=== PATIENT | male | born 1980 | race Caucasian/White ===

== ENCOUNTER 2017-08-25 15:51 | Inpatient (IN) | payer BC, OTHER ==
[~2017-08-25] VITALS: Ht 180.3 cm; Wt 106.6 kg
[2017-08-25] MEDS ORDERED: DICYCLOMINE HCL 20 MG TABLET PO PRN (18:15)
[2017-08-25] MEDS ORDERED: LORAZEPAM 1 MG TABLET PO PRN ×2 (18:15)
[2017-08-25] MEDS ORDERED: MIRALAX 17 GM POWD.PACK PO PRN (18:15)
[2017-08-25] MEDS ORDERED: ACETAMINOPHEN 325 MG TABLET PO PRN (18:15)
[2017-08-25] MEDS ORDERED: LORAZEPAM 2 MG/1 ML VIAL IM PRN (18:15)
[2017-08-25] MEDS ORDERED: LOPERAMIDE HCL 2 MG CAPSULE PO PRN ×2 (18:15)
[2017-08-25] MEDS ORDERED: ONDANSETRON ODT 4 MG TAB.RAPDIS SL PRN (18:15)
[2017-08-25] MEDS ORDERED: MAGNESIUM HYDROXIDE 30 ML LIQUID UDC PO PRN (18:15)
[2017-08-25] MEDS ORDERED: ONDANSETRON 4 MG/2 ML VIAL IM PRN (18:15)
[2017-08-25] MEDS ORDERED: diphenhydrAMINE 50 MG CAPSULE PO PRN (18:15)
[2017-08-25] MEDS ORDERED: MAG HYDROX/AL HYDROX/SIMETH 30 ML LIQUID UDC PO PRN (18:15)
[2017-08-25] MEDS ORDERED: THIAMINE HCL 200 MG/2 ML VIAL IM ONE (19:00)
[2017-08-25 20:00] VITALS: BP 130/68
[2017-08-25 20:24] LABS: *AMPHETAMINE, URINE POSITIVE (NEGATIVE); *BARBITURATE, URINE NEGATIVE (NEGATIVE); *CANNABINOID, URINE NEGATIVE (NEGATIVE); *COCCAINE, URINE NEGATIVE (NEGATIVE); *OPIATE, URINE NEGATIVE (NEGATIVE); *PHENCYCLIDINE SCREEN,URINE NEGATIVE (NEGATIVE)
[2017-08-25] MEDS: GABAPENTIN 300 MG CAPSULE PO SCH (20:52)
[2017-08-25] MEDS ORDERED: LORAZEPAM 1 MG TABLET PO SCH (21:00)
[2017-08-25 22:59] LABS: ETHANOL < 3 MG/DL (0-0)
[2017-08-25] MEDS ORDERED: ARIP10TA9 PO (23:03)
[2017-08-25] MEDS ORDERED: BUPR200T2 PO (23:03)
[2017-08-25] MEDS ORDERED: TRAZ-147 PO (23:03)
[2017-08-25] MEDS ORDERED: DULO30CA2 PO (23:03)
[2017-08-25 23:45] LABS: ALANINE AMINOTRANSFERASE 56 U/L (16-63); ALKALINE PHOSPHATASE 54 U/L (50-136); AMYLASE 45 U/L (25-115); ASPARTATE AMINOTRANSFERASE 29 U/L (15-37); BILIRUBIN,TOTAL 0.3 mg/dL (0.2-1.0); CARBON DIOXIDE 30 mmol/L (21-32); CHLORIDE 102 mmol/L (98-107); CREATININE 1.3 mg/dL (0.6-1.3); GLUCOSE 105 mg/dL (74-106); POTASSIUM 4.1 mmol/L (3.5-5.1); TOTAL PROTEIN, SERUM 6.7 g/dL (6.4-8.2); UREA NITROGEN, BLOOD 19 mg/dL (7-18)
[2017-08-25 23:46] LABS: THYROID STIMULATING HORMONE 2.281 mIU/mL (0.358-3.740)
[2017-08-26] VITALS: BP 125/72
[2017-08-26 00:06] LABS: BASOPHILS # (AUTO) 0.1 K/uL (0.0-8.0); BASOPHILS % (AUTO) 1.3 % (0.0-2.0); EOSINOPHILS # (AUTO) 0.9 K/uL (0.0-0.7); EOSINOPHILS % (AUTO) 9.2 % (0.0-7.0); HEMATOCRIT 44.3 % (36.7-47.1); HEMOGLOBIN 15.4 g/dL (12.5-16.3); LYMPHOCYTES # (AUTO) 2.1 K/uL (20.0-40.0); LYMPHOCYTES % (AUTO) 22.6 % (20.5-51.5); MEAN CORPUSCULAR HEMOGLOBIN 34.5 uug (23.8-33.4); MEAN CORPUSCULAR HGB CONC 35 g/dL (32.5-36.3); MEAN CORPUSCULAR VOLUME 99.4 fL (73.0-96.2); MONOCYTES # (AUTO) 0.7 K/uL (2.0-10.0); MONOCYTES % (AUTO) 7.7 % (0.0-11.0); NEUTROPHILS # (AUTO) 5.5 K/uL (1.8-8.9); NEUTROPHILS % (AUTO) 59.2 % (38.5-71.5); PLATELET COUNT (AUTO) 143 K/uL (152-348); RED BLOOD CELL COUNT(AUTO) 4.46 MIL/uL (4.06-5.63); WHITE BLOOD COUNT (AUTO) 9.4 K/uL (3.6-10.2)
[2017-08-26 04:00] VITALS: BP 132/70
[2017-08-26 08:00] VITALS: BP 118/76
[2017-08-26] MEDS ORDERED: TUBERCULIN,PURIF.PROT.DERIV. 5 TU/0.1 ML TEST ID ONE (09:00)
[2017-08-26] MEDS: THIAMINE HCL 100 MG TABLET PO SCH (09:10)
[2017-08-26] MEDS: LORAZEPAM 1 MG TABLET PO SCH ×3 (09:10→20:17)
[2017-08-26] MEDS: FOLIC ACID 1 MG TABLET PO SCH (09:10)
[2017-08-26] MEDS: GABAPENTIN 300 MG CAPSULE PO SCH ×2 (09:10→20:18)
[2017-08-26] MEDS: MULTIVITAMINS,THERAPEUTIC TABLET PO SCH (09:10)
[2017-08-26] MEDS ORDERED: TRAZODONE 100 MG TABLET PO PRN (09:45)
[2017-08-26] MEDS ORDERED: PNEUMOCOCCAL 23-VAL P-SAC VAC 0.5 ML VIAL IM ONE (10:00)
[2017-08-26] MEDS: buPROPion XL 150 MG TAB.SR.24H PO SCH (10:24)
[2017-08-26] MEDS: ARIPIPRAZOLE 10 MG TABLET PO SCH (10:24)
[2017-08-26] MEDS ORDERED: INFLUENZA VACCINE 2017-2018 0.5 ML DISP.SYRIN IM ONE ×2 (10:49→15:00)
[2017-08-26 12:00] VITALS: BP 114/61
[2017-08-26 16:00] VITALS: BP 111/60
[2017-08-26 20:00] VITALS: BP 139/71
[2017-08-26] MEDS: IBUPROFEN 400 MG TABLET PO PRN (20:17)
[2017-08-27 08:00] VITALS: BP 109/67
[2017-08-27 08:06] LABS: HEPATITIS B SURFACE AG Negative (Negative)
[2017-08-27] MEDS: FOLIC ACID 1 MG TABLET PO SCH (08:18)
[2017-08-27] MEDS: MULTIVITAMINS,THERAPEUTIC TABLET PO SCH (08:18)
[2017-08-27] MEDS: buPROPion XL 150 MG TAB.SR.24H PO SCH (08:18)
[2017-08-27] MEDS: GABAPENTIN 300 MG CAPSULE PO SCH ×3 (08:18→20:15)
[2017-08-27] MEDS: LORAZEPAM 1 MG TABLET PO SCH ×3 (08:18→20:15)
[2017-08-27] MEDS: THIAMINE HCL 100 MG TABLET PO SCH (08:18)
[2017-08-27] MEDS: ARIPIPRAZOLE 10 MG TABLET PO SCH (08:18)
[2017-08-27] MEDS ORDERED: HYDROXYZINE PAMOATE 25 MG CAPSULE PO PRN ×2 (09:00→19:15)
[2017-08-27] MEDS: IBUPROFEN 400 MG TABLET PO PRN (11:55)
[2017-08-27 12:00] VITALS: BP 122/74
[2017-08-27] MEDS ORDERED: LORAZEPAM 1 MG TABLET PO ONE (12:00)
[2017-08-27 16:00] VITALS: BP 120/65
[2017-08-27] MEDS ORDERED: KETOROLAC TROMETHAMINE 30 MG INJ IM PRN (16:30)
[2017-08-27] MEDS ORDERED: BACLOFEN 20 MG TABLET PO PRN (16:30)
[2017-08-27] MEDS ORDERED: IBUPROFEN 600 MG TABLET PO PRN (16:30)
[2017-08-27 20:00] VITALS: BP 114/64
[2017-08-27] MEDS: QUETIAPINE FUMARATE 100 MG TABLET PO PRN (22:38)
[2017-08-28] VITALS: BP_SYST 103; BP_SYST 111; BP_DIAS 58; BP_DIAS 63
[2017-08-28 04:00] VITALS: BP 126/72
[2017-08-28 08:00] VITALS: BP 137/77
[2017-08-28] MEDS: GABAPENTIN 300 MG CAPSULE PO SCH ×2 (08:30→14:16)
[2017-08-28] MEDS: MULTIVITAMINS,THERAPEUTIC TABLET PO SCH (08:30)
[2017-08-28] MEDS: ARIPIPRAZOLE 10 MG TABLET PO SCH (08:31)
[2017-08-28] MEDS: THIAMINE HCL 100 MG TABLET PO SCH (08:31)
[2017-08-28] MEDS: LORAZEPAM 1 MG TABLET PO SCH ×3 (08:31→20:49)
[2017-08-28] MEDS: buPROPion XL 150 MG TAB.SR.24H PO SCH (08:31)
[2017-08-28] MEDS: FOLIC ACID 1 MG TABLET PO SCH (08:31)
[2017-08-28] MEDS ORDERED: LORAZEPAM 1 MG TABLET PO SCH ×2 (09:00)
[2017-08-28 12:00] VITALS: BP 115/63
[2017-08-28] MEDS ORDERED: CLONIDINE HCL 0.1 MG TABLET PO ONE (15:00)
[2017-08-28 16:00] VITALS: BP 136/77
[2017-08-28 20:00] VITALS: BP 120/76
[2017-08-28] MEDS: CLONIDINE HCL 0.1 MG TABLET PO SCH (20:49)
[2017-08-28] MEDS: QUETIAPINE FUMARATE 100 MG TABLET PO PRN (20:52)
[2017-08-28] MEDS ORDERED: GABAPENTIN 300 MG CAPSULE PO SCH (21:00)
[2017-08-29 08:00] VITALS: BP 95/65
[2017-08-29] MEDS ORDERED: LORAZEPAM 1 MG TABLET PO SCH (09:00)
[2017-08-29] MEDS: ARIPIPRAZOLE 10 MG TABLET PO SCH (09:17)
[2017-08-29] MEDS: GABAPENTIN 300 MG CAPSULE PO SCH ×3 (09:17→20:10)
[2017-08-29] MEDS: CLONIDINE HCL 0.1 MG TABLET PO SCH ×2 (09:17→20:11)
[2017-08-29] MEDS: MULTIVITAMINS,THERAPEUTIC TABLET PO SCH (09:17)
[2017-08-29] MEDS: THIAMINE HCL 100 MG TABLET PO SCH (09:17)
[2017-08-29] MEDS: FOLIC ACID 1 MG TABLET PO SCH (09:17)
[2017-08-29] MEDS: buPROPion XL 150 MG TAB.SR.24H PO SCH (09:17)
[2017-08-29 12:00] VITALS: BP 106/74
[2017-08-29 16:00] VITALS: BP 106/77
[2017-08-29] MEDS ORDERED: GABA-534 PO (19:50)
[2017-08-29] MEDS ORDERED: BACL20TA PO (19:50)
[2017-08-29] MEDS ORDERED: HYDR-3895 PO (19:50)
[2017-08-29] MEDS ORDERED: IBUP-1955 PO (19:50)
[2017-08-29] MEDS ORDERED: QUET100T PO (19:50)
[2017-08-29] MEDS: QUETIAPINE FUMARATE 100 MG TABLET PO PRN (20:10)
[2017-08-29 20:16] VITALS: BP 119/73
[2017-08-30 00:22] VITALS: BP 116/70
[2017-08-30 04:12] VITALS: BP 112/66
[2017-08-30 08:00] VITALS: BP 111/78
[2017-08-30 08:12] VITALS: BP 111/78
[2017-08-30] MEDS: THIAMINE HCL 100 MG TABLET PO SCH (08:12)
[2017-08-30] MEDS: buPROPion XL 150 MG TAB.SR.24H PO SCH (08:12)
[2017-08-30] MEDS: CLONIDINE HCL 0.1 MG TABLET PO SCH (08:12)
[2017-08-30] MEDS: FOLIC ACID 1 MG TABLET PO SCH (08:12)
[2017-08-30] MEDS: ARIPIPRAZOLE 10 MG TABLET PO SCH (08:12)
[2017-08-30] MEDS: MULTIVITAMINS,THERAPEUTIC TABLET PO SCH (08:12)
[2017-08-30] MEDS: GABAPENTIN 300 MG CAPSULE PO SCH (08:12)
== END 2017-08-30 09:28 | DRG 895 ==
LOC: SRC 17:10
PROVIDERS: ADMIT Internal Medicine; ATTEND Internal Medicine
PROC: HZ2ZZZZ Detoxification Services for Substance Abuse Treatment (ICD-10-PCS; principal; 2017-08-25)
PROC: HZ31ZZZ Individual Counseling for Substance Abuse Treatment, Behavioral (ICD-10-PCS; 2017-08-28)
PROC: HZ41ZZZ Group Counseling for Substance Abuse Treatment, Behavioral (ICD-10-PCS; 2017-08-29)
DX: F10.230 Alcohol dependence with withdrawal, uncomplicated (principal); F33.2 Major depressive disorder, recurrent severe without psychotic features; D69.6 Thrombocytopenia, unspecified; F15.220 Other stimulant dependence with intoxication, uncomplicated; Y90.0 Blood alcohol level of less than 20 mg/100 ml; F17.210 Nicotine dependence, cigarettes, uncomplicated; F40.01 Agoraphobia with panic disorder; Z91.89 Other specified personal risk factors, not elsewhere classified; G47.00 Insomnia, unspecified; Z87.820 Personal history of traumatic brain injury; Z81.1 Family history of alcohol abuse and dependence; Z82.49 Family history of ischemic heart disease and other diseases of the circulatory system; Z80.3 Family history of malignant neoplasm of breast; E86.0 Dehydration; F12.90 Cannabis use, unspecified, uncomplicated; F11.10 Opioid abuse, uncomplicated; F13.10 Sedative, hypnotic or anxiolytic abuse, uncomplicated; Z79.899 Other long term (current) drug therapy
CPT/HCPCS: 36415; 70030-TC; 80307; 80324; 83735; 84443; 85025; 86580; 86592; 86705; 86803; 87340; 87806; 90686; 90732; A4663; G0480; J1885; J3411